=== PATIENT | female | born 1970 | race Caucasian/White ===

== ENCOUNTER 2019-11-02 22:44 | Emergency (ER) | payer OTHER ==
--- NOTE | 2019-11-03 00:23 | XR ---
EXAMINATION TYPE: XR wrist complete RT DATE OF EXAM: 11/02/2019 COMPARISON: NONE HISTORY: Pain. Fall. TECHNIQUE: 3 views FINDINGS: There is slightly impacted intra-articular comminuted fracture of the medial aspect of the distal radial metaphysis and epiphysis. There is no dislocation. Distal ulna is intact. The carpal [place] are intact. IMPRESSION: Intra-articular fracture of the distal radius as above. No significant displacement.
--- NOTE | 2019-11-03 00:24 | XR ---
EXAMINATION TYPE: XR hand complete RT DATE OF EXAM: 11/02/2019 COMPARISON: NONE HISTORY: Wrist pain TECHNIQUE: 3 views FINDINGS: There is mildly impacted intra-articular fracture of the distal radial metaphysis and epiph ysis. Distal ulna is intact. Carpal bones are intact. Metacarpals are intact. There is no dislocation . IMPRESSION: Distal radius acute fracture as above. Bones of the hand appear intact.
--- NOTE | 2019-11-03 00:26 | XR ---
EXAMINATION TYPE: XR forearm RT DATE OF EXAM: 11/02/2019 COMPARISON: NONE HISTORY: Fall. Pain. TECHNIQUE: 2 views FINDINGS: Elbow joint is intact. There is intra-articular slightly impacted fracture distal radius. T here is no dislocation at the wrist joint. Distal ulna is intact. IMPRESSION: Acute fracture distal radius. No displacement. Elbow joint appears normal.
--- NOTE | 2019-11-03 00:45 | ED ---
General Adult HPI - General Chief complaint: Extremity Injury, Upper Stated complaint: RT wrist injury Time Seen by Provider: 11/02/19 22:59 Source: patient, RN notes reviewed, old records reviewed Mode of arrival: ambulatory Limitations: no limitations - History of Present Illness Initial comments: 48-year-old female patient presents to ED for chief complaint of right wrist injury. Patient reports that she was pumping her gas and her car when she stumbled and fell forward on her right forearm. This happened at approximate 4 PM. She is complaining of distal radius pain and some mild elbow pain. Denies any trauma to head or neck. Denies any use of blood thinners. Denies any other complaints. Systemic: Pt denies fatigue, fever/chills, rash. Pt denies weakness, night sweats, weight loss. Neuro: Pt denies headache, visual disturbances, syncope or pre-syncope. HEENT: Pt denies ocular discharge or irritation, otalgia, rhinorrhea, pharyngitis or notable lymphadenopathy. Cardiopulmonary: Pt denies chest pain, SOB, heart palpitations, dyspnea on exertion. Abdominal/GI: Pt denies abdominal pain, n/v/d. : Pt denies dysuria, burning w/ urination, frequency/urgency. Denies new onset urinary or bowel incontinence. Neuro: Pt denies new onset weakness, paresthesias. - Related Data Allergies Allergy/AdvReac Type Severity Reaction Status Date / Time No Known Allergies Allergy Verified 11/02/19 22:55 Review of Systems ROS Statement: Those systems with pertinent positive or pertinent negative responses have been documented in the HPI. ROS Other: All systems not noted in ROS Statement are negative. Past Medical History Past Medical History: No Reported History History of Any Multi-Drug Resistant Organisms: None Reported Past Surgical History: Section Past Psychological History: No Psychological Hx Reported Smoking Status: Former smoker Past Alcohol Use History: Occasional Past Drug Use History: None Reported General Exam - General Exam Comments Initial Comments: Constitutional: NAD, AOX3, Pt has pleasant affect. HEENT: NC/AT, trachea midline, neck supple, no lymphadenopathy. Posterior pharynx non erythematous, without exudates. External ears appear normal, without discharge. Mucous membranes moist. Eyes PERRLA, EOM intact. There is no scleral icterus. No pallor noted. Cardiopulmonary: RRR, no murmurs, rubs or gallops, no JVD noted. Lungs CTAB in anterior and posterior hernandez. No peripheral edema. Abdominal exam: Abdomen soft and non-distended. Abdomen non-tender to palpation in all 4 quadrants. Bowel sounds active in LLQ. No hepatosplenomegaly. No ecchymosis Neuro: CN II-XII grossly intact. No nuchal rigidity. No raccon eyes, no rosales sign, no hemotympanum. No cervical spinal tenderness. MSK: Swelling noted distal radius. Tender to palpation. Neurovascularly intact. Full active range of motion of fingers. Flexion range of motion of elbow. Mild medial forearm tenderness. Limitations: no limitations Course Vital Signs 11/02/19 11/03/19 22:49 01:07 Temperature 98.1 F 98.2 F Pulse Rate 74 68 Respiratory 18 16 Rate Blood Pressure 152/79 129/72 O2 Sat by Pulse 100 100 Oximetry Procedures - Orthopedic Splinting/Casting Injury #1 Side: right Upper Extremity Injury Location: wrist Upper Extremity Immobilizer: volar splint Medical Decision Making - Medical Decision Making 48-year-old female patient presents to ED for chief complaint of right wrist injury. Patient reports that she was pumping her gas and her car when she stumbled and fell forward on her right forearm. This happened at approximate 4 PM. She is complaining of distal radius pain and some mild elbow pain. Denies any trauma to head or neck. Denies any use of blood thinners. Denies any other complaints. Patient vital signs are stable, afebrile. Physical exam displayed: Swelling noted distal radius. Tender to palpation. Neurovascularly intact. Full active range of motion of fingers. Flexion range of motion of elbow. Mild medial forearm tenderness. Plain film of forearm hand and wrist displayed acute distal radius fracture. Elbow appears normal. Patient placed in volar splint. Neurovascularly intact before and after splint placement. We discharge the patient orthopedic follow-up. Case discussed with Dr. Narayanan. Disposition Clinical Impression: Distal radius fracture Disposition: HOME SELF-CARE Condition: Stable Instructions (If sedation given, give patient instructions): Wrist Fracture in Adults (ED) Additional Instructions: Follow-up with primary care provider tomorrow. Follow-up with orthopedic consult tomorrow. Continue to wear splint. Return to ER condition worsens. Is patient prescribed a controlled substance at d/c from ED?: No Referrals: None,Stated [Primary Care Provider] - 1-2 days Vince Kaiser MD [STAFF PHYSICIAN] - 1-2 days [facility] [NON-STAFF] - 1-2 days
[2019-11-03 01:08] VITALS: BP 129/72; PULSE 68; RESP 16; TEMP 98.2
== END 2019-11-03 01:10 | disposition home or self-care (01) ==
LOC: EC 22:44
DX: S52.571A Other intraarticular fracture of lower end of right radius, initial encounter for closed fracture (principal); Z87.891 Personal history of nicotine dependence; W01.0XXA Fall on same level from slipping, tripping and stumbling without subsequent striking against object, initial encounter; Y93.89 Activity, other specified
CPT/HCPCS: 29125; 99284

== ENCOUNTER → 2019-11-07 | Outpatient (CLI) | payer OTHER ==
[2019-11-07 08:46] LABS: Appearance,Urine Clear (Clear); Bilirubin,Urine Negative (Negative); Blood,Urine Negative (Negative); Color,Urine Yellow; Glucose,Urine (UA) Negative (Negative); Ketones,Urine Negative (Negative); Leukocyte Esterase,Urine Negative (Negative); Nitrite,Urine Negative (Negative); Protein,Urine Negative (Negative); Specific Gravity,Urine 1.017 (1.001-1.035); Urobilinogen,Urine <2.0 mg/dL (<2.0)
[2019-11-07 08:54] LABS: ALT 16 U/L (4-34); AST 24 U/L (14-36); African American GFR (CKD) >90 (>60 ml/min/1.73 sqM); Albumin 4.1 g/dL (3.5-5.0); Alkaline Phosphatase 76 U/L (38-126); Anion Gap 8 mmol/L; Blood Urea Nitrogen 15 mg/dL (7-17); Calcium 9.5 mg/dL (8.4-10.2); Carbon Dioxide 25 mmol/L (22-30); Chloride 107 mmol/L (98-107); Glucose 106 mg/dL (74-99); Non-African American GFR(CKD) >90 (>60 ml/min/1.73 sqM); Phosphorus 4.5 mg/dL (2.5-4.5); Potassium 4.3 mmol/L (3.5-5.1); Sodium 140 mmol/L (137-145); Total Bilirubin 0.4 mg/dL (0.2-1.3); Total Protein 7.1 g/dL (6.3-8.2)
[2019-11-07 08:58] LABS: Basophils % (A) 1 %; Eosinophils # (A) 0.1 k/uL (0-0.7); Eosinophils % (A) 3 %; HGB 13.3 gm/dL (11.4-16.0); Lymphocytes # (A) 1.3 k/uL (1.0-4.8); Lymphocytes % (A) 35 %; MCH 30.7 pg (25.0-35.0); MCHC 33.4 g/dL (31.0-37.0); Mean Platelet Volume 6.9; Monocytes # (A) 0.3 k/uL (0-1.0); Monocytes % (A) 8 %; Neutrophils # (A) 1.9 k/uL (1.3-7.7); Neutrophils % (A) 51 %; Platelet Count 287 k/uL (150-450); RBC 4.35 m/uL (3.80-5.40); RDW 12.5 % (11.5-15.5); WBC 3.8 k/uL (3.8-10.6)
--- NOTE | 2019-11-07 09:53 | CT ---
EXAMINATION TYPE: CT wrist RT wo con DATE OF EXAM: 11/07/2019 COMPARISON: Radiographs 11/02/2019 HISTORY: 48-year-old female right wrist pain post fall, presurgical TECHNIQUE: Contiguous axial scanning of the right wrist without IV contrast. Coronal and sagittal rec onstructions performed. 3 reconstructions generated on a dedicated independent workstation. CT DLP: 107 mGycm Automated exposure control for dose reduction was used. FINDINGS: Overlying fiberglass splint and plaster cast. Comminuted fracture of the distal radial metaphysis and epiphysis. Intra-articular extension into bot h the dorsal aspect of the radioscaphoid joint and the mid and dorsal radiolunate joint. Greatest degree of comminution along the dorsal aspect including extension to involve Yao's tuberc le. No significant displacement is demonstrated. The intra-articular extension and comminution results in a articular surface defect measuring 4 mm wi de and 3 mm AP along the mid dorsal aspect of the radial articular surface, coronal image 17 and sagi ttal image 25. There is a vertical fracture line oriented in the coronal plane extending into the sigmoid notch of t he distal radial ulnar joint. No significant articular surface step-off in this region, refer to axia l image 24. IMPRESSION: 1. COMMINUTED FRACTURES OF THE DISTAL RADIAL METAPHYSIS AND EPIPHYSIS WITH DORSAL COMMINUTION WHICH E XTENDS TO INVOLVE YAO'S TUBERCLE WELL. NO SIGNIFICANT DISPLACEMENT. INTRA-ARTICULAR EXTENSION I NTO BOTH THE RADIOSCAPHOID AND RADIOLUNATE JOINTS. 2. THE DORSAL COMMINUTION RESULTS IN A DEFECT OF THE MID DORSAL RADIAL ARTICULAR SURFACE MEASURING 4 X 3 MM (CORONAL IMAGE 17 AND SAGITTAL IMAGE 25). 3. FRACTURE LINE ORIENTED IN THE CORONAL PLANE EXTENDING INTO THE SIGMOID NOTCH OF THE DISTAL RADIAL ULNAR JOINT.
== END | disposition home or self-care (01) ==
LOC: RADCTMAIN 07:16
PROVIDERS: ATTEND Orthopaedic Surgery
DX: S52.591A Other fractures of lower end of right radius, initial encounter for closed fracture (principal); M25.531 Pain in right wrist
CPT/HCPCS: 80053; 81003; 82306; 82310; 82652; 83970; 84100; 85025